=== PATIENT | female | born 1960 | race Two or more races ===

== ENCOUNTER 2018-05-04 07:37 | Day surgery (SDC) | payer OTHER | END 2018-05-04 12:45 | disposition home or self-care (01) | LOC: AMB-ENDOS 07:37 | DX: K52.89 Other specified noninfective gastroenteritis and colitis (principal) ==

== ENCOUNTER 2021-07-17 11:45 | Inpatient (IN) | payer OTHER ==
[~2021-07-17] VITALS: Ht 160 cm; Wt 98.9 kg
[2021-07-17] MEDS ORDERED: VERELAN180 MG PO (14:30)
[2021-07-17] MEDS ORDERED: HYDROCHLOROTH12.5 MG PO (14:30)
[2021-07-17] MEDS ORDERED: PRAVASTATIN SOD40 MG PO (14:30)
[2021-07-17] MEDS ORDERED: COZAAR25 MG PO (14:30)
[2021-07-17] MEDS ORDERED: JANTOVEN10 MG PO (14:30)
[2021-07-17] MEDS ORDERED: METFORMIN HCL500 M3 PO (14:31)
[2021-07-17] MEDS ORDERED: D3 + K2 DOTS 11 EACH PO (14:31)
[2021-07-17] MEDS ORDERED: BIOTIN5000 MCG PO (14:31)
[2021-07-17] MEDS ORDERED: ECHINACEA80 MG PO (14:31)
[2021-07-24] MEDS ORDERED: RESTORIL15 MG (13:06)
[2021-07-24] MEDS ORDERED: AMITRIPTYLINE H75 MG (13:06)
[2021-07-24] MEDS ORDERED: LORAZEPAM0.5 MG (13:06)
[2021-07-24] MEDS ORDERED: BUPROPION XL300 MG (13:06)
== END 2021-08-10 16:51 | disposition home or self-care (01) | DRG 330 ==
LOC: SURH 07-24 09:51 → O/R 07-24 09:51 → SURH 07-24 11:15
PROVIDERS: ADMIT Surgery; ATTEND Surgery
PROC: 0DBP4ZZ Excision of Rectum, Percutaneous Endoscopic Approach (ICD-10-PCS; 2021-07-24)
PROC: 4A12X4Z Monitoring of Cardiac Electrical Activity, External Approach (ICD-10-PCS; 2021-07-24)
PROC: 0DTN4ZZ Resection of Sigmoid Colon, Percutaneous Endoscopic Approach (ICD-10-PCS; principal; 2021-07-24 11:15)
PROC: B24BZZZ Ultrasonography of Heart with Aorta (ICD-10-PCS; 2021-07-26)
PROC: 02HV33Z Insertion of Infusion Device into Superior Vena Cava, Percutaneous Approach (ICD-10-PCS; 2021-07-27)
PROC: 30233N1 Transfusion of Nonautologous Red Blood Cells into Peripheral Vein, Percutaneous Approach (ICD-10-PCS; 2021-07-27)
PROC: B24BZZZ Ultrasonography of Heart with Aorta (ICD-10-PCS; 2021-07-30)
PROC: BW21YZZ Computerized Tomography (CT Scan) of Abdomen and Pelvis using Other Contrast (ICD-10-PCS; 2021-08-01)
PROC: 0WQF0ZZ Repair Abdominal Wall, Open Approach (ICD-10-PCS; 2021-08-03)
PROC: 0WJF4ZZ Inspection of Abdominal Wall, Percutaneous Endoscopic Approach (ICD-10-PCS; 2021-08-03)
PROC: 0DBU0ZZ Excision of Omentum, Open Approach (ICD-10-PCS; 2021-08-03)
DX: K57.32 Diverticulitis of large intestine without perforation or abscess without bleeding (principal); K62.5 Hemorrhage of anus and rectum; K42.0 Umbilical hernia with obstruction, without gangrene; K43.0 Incisional hernia with obstruction, without gangrene; K91.89 Other postprocedural complications and disorders of digestive system; K56.7 Ileus, unspecified; K65.4 Sclerosing mesenteritis; D12.5 Benign neoplasm of sigmoid colon; D64.9 Anemia, unspecified; K52.89 Other specified noninfective gastroenteritis and colitis; R33.8 Other retention of urine; Z53.31 Laparoscopic surgical procedure converted to open procedure; I11.9 Hypertensive heart disease without heart failure

== ENCOUNTER 2024-07-22 14:04 | Outpatient (CLI) | payer OTHER ==
[~2024-07-22 14:04] MED LIST: AMITRIPTYLINE H75 MG; BIOTIN5000 MCG PO; BUPROPION XL300 MG; COZAAR25 MG PO; D3 + K2 DOTS 11 EACH PO; ECHINACEA80 MG PO; HYDROCHLOROTH12.5 MG PO; JANTOVEN10 MG PO; LORAZEPAM0.5 MG; METFORMIN HCL500 M3 PO; PRAVASTATIN SOD40 MG PO; RESTORIL15 MG; VERELAN180 MG PO
== END 2024-07-22 14:11 | disposition home or self-care (01) ==
LOC: SONOGRAMA 14:04
PROVIDERS: ATTEND Pathology Anatomic Pathology
DX: C73 Malignant neoplasm of thyroid gland (principal); E04.1 Nontoxic single thyroid nodule